=== PATIENT | male | born 1990 | race Caucasian/White ===

== ENCOUNTER 2018-11-23 15:00 | Emergency (ER) | payer SELFPAY ==
[2018-11-23] MEDS ORDERED: Lidocaine 1% 20 ML MDV INJECT ONE (15:06)
[2018-11-23] MEDS ORDERED: Bupivacaine 0.5% 10 ML SDV INJECT ONE (15:06)
--- NOTE | 2018-11-23 15:14 | EDM.PDOC ---
ED HPI GENERAL MEDICAL PROBLEM - General Stated Complaint: LEFT MIDDLE AND RING FINGER CUT Time Seen by Provider: 11/23/18 15:05 Source of Information: Reports: Patient History Limitations: Reports: No Limitations - History of Present Illness INITIAL COMMENTS - FREE TEXT/NARRATIVE: History of present illness: []Patient was doing a hand stand when he fell onto a vaper and cut his hand. He states he can see the tendon but has no complaints of difficulty moving his middle finger or numbness or tingling. Review of systems: As per history of present illness and below otherwise all systems reviewed and negative. Past medical history: As per history of present illness and as reviewed below otherwise noncontributory. Surgical history: As per history of present illness and as reviewed below otherwise noncontributory. Social history: No reported history of drug or alcohol abuse. Family history: As per history of present illness and as reviewed below otherwise noncontributory. Physical exam: General: Well developed, well nourished in NAD HEENT: Atraumatic, normocephalic, pupils reactive, negative for conjunctival pallor or scleral icterus, mucous membranes moist, throat clear, neck supple, nontender, trachea midline. Lungs: Clear to auscultation, breath sounds equal bilaterally, chest nontender. Heart: S1S2, regular, negative for clicks, rubs, or JVD. Abdomen: NABS, Soft, nondistended, nontender. Negative for masses or hepatosplenomegaly. Negative for costovertebral tenderness. Pelvis: Stable nontender. Genitourinary: Deferred. Rectal: Deferred. Extremities: Dorsal proximal left middle finger with a half centimeter straight laceration, dorsal tendon is visible underneath it and looks intact, patient has full range of motion with extension of his fingers and sensation is intact negative for cords or calf pain. Neurovascular unremarkable. Neuro: Awake, alert, oriented. Cranial nerves II through XII unremarkable. Cerebellum unremarkable. Motor and sensory unremarkable throughout. Exam nonfocal. Skin:warm and dry Diagnostics: None Therapeutics: She did not want sutures wound was closed with Dermabond, tetanus status updated , finger splint ED Course: stable Impression: Left hand laceration Prescriptions: None Plan: Follow-up with PMD as needed. Definitive disposition and diagnosis as appropriate pending reevaluation and review of above. - Related Data Allergies Allergy/AdvReac Type Severity Reaction Status Date / Time No Known Allergies Allergy Verified 11/23/18 15:13 Home Meds: Home Meds . [No Known Home Meds] 11/23/18 [History] ED ROS GENERAL - Review of Systems Review Of Systems: ROS reveals no pertinent complaints other than HPI. ED EXAM, UPPER BACK/NECK PAIN - Physical Exam Exam: See Below (See history of present illness) ED LACERATION/WOUND PROCEDURES - Laceration/Wound Repair middle finger\ Laceration/Wound Length In cm: 0.5 Appearance: Subcutaneous Distal NVT: Neuro & Vascular Intact, No Tendon Injury Suture Size: other (Dermabond) Drain Placement: No Sterile Dressing Applied: Nurse Tetanus Status Addressed: Yes Complications: None Course - Vital Signs Last Recorded V/S: Last Vital Signs Temp 97.1 F 11/23/18 15:13 Pulse 68 11/23/18 15:13 Resp 18 11/23/18 15:13 BP 115/56 L 11/23/18 15:13 Pulse Ox 99 11/23/18 15:13 - Orders/Labs/Meds Orders: Active Orders 24 hr Category Date Time Status Vaccines to be Administered [RC] PER UNIT ROUTINE Care 11/23/18 15:48 Active Meds: Medications Discontinued Medications Generic Name Dose Route Start Last Admin Trade Name Docq PRN Reason Stop Dose Admin Bupivacaine HCl 10 ml 11/23/18 15:06 11/23/18 15:21 Sensorcaine-Mpf 0.5% INJECT 11/23/18 15:07 10 ml ONETIME ONE Administration Diphtheria/Tetanus/Acell Pertussis 0.5 ml 11/23/18 15:48 11/23/18 15:57 Adacel IM 11/23/18 15:49 0.5 ml .ONCE ONE Administration Lidocaine HCl Confirm 11/23/18 15:28 Xylocaine-Mpf 1% Administered 11/23/18 15:29 Dose 5 mls @ as directed .ROUTE .STK-MED ONE Lidocaine HCl 20 ml 11/23/18 15:06 Xylocaine 1% INJECT 11/23/18 15:07 ONETIME ONE Lidocaine HCl Confirm 11/23/18 15:15 11/23/18 15:21 Xylocaine 1% Administered 11/23/18 15:16 50 ml Dose Administration 50 ml .ROUTE .STK-MED ONE Octyl Cyanoacrylate 1 applic 11/23/18 15:33 11/23/18 15:56 Dermabond [facility] 11/23/18 15:34 1 applic ONETIME ONE Administration Departure - Departure Time of Disposition: 16:02 Disposition: Home, Self-Care 01 Condition: Good Clinical Impression: Laceration of left middle finger Qualifiers: Encounter type: initial encounter Damage to nail status: without damage Foreign body presence: without foreign body Qualified Code(s): S61.213A - Laceration without foreign body of left middle finger without damage to nail, initial encounter - Discharge Information *PRESCRIPTION DRUG MONITORING PROGRAM REVIEWED*: No *COPY OF PRESCRIPTION DRUG MONITORING REPORT IN PATIENT [id number]: No - My Orders Last 24 Hours: My Active Orders 11/23/18 15:48 Vaccines to be Administered [RC] PER UNIT ROUTINE - Assessment/Plan Last 24 Hours: My Active Orders 11/23/18 15:48 Vaccines to be Administered [RC] PER UNIT ROUTINE
[2018-11-23] MEDS ORDERED: Lidocaine 1% 50 ML MDV ONE (15:15)
[2018-11-23] MEDS ORDERED: Octyl 2-Cyanoacrylate 1 Tube TOP ONE (15:33)
[2018-11-23] MEDS ORDERED: Diphtheria,Pertussis(Acell),Tetanus Vaccine 0.5 ML Syringe IM ONE (15:48)
== END 2018-11-23 16:25 | disposition home or self-care (01) ==
LOC: MW.ED 15:00
DX: S61.213A Laceration without foreign body of left middle finger without damage to nail, initial encounter (principal); W19.XXXA Unspecified fall, initial encounter; Z23 Encounter for immunization
CPT/HCPCS: 12001; 90471; 90715; 99282; A9270; J2001; J3490

== ENCOUNTER 2022-11-10 12:22 | Emergency (ER) | payer SELFPAY ==
[2022-11-10] MEDS ORDERED: Acetaminophen 500 MG Tab PO ONE (13:23)
[2022-11-10 13:32] LABS: CORONAVIRUS COVID-19 NAA POSITIVE (NEGATIVE); INFLUENZA A NAA NEGATIVE (NEGATIVE); INFLUENZA B NAA NEGATIVE (NEGATIVE); RESPIRATORY SYNCYTIAL VIR NAA NEGATIVE (NEGATIVE)
== END 2022-11-10 13:59 | disposition home or self-care (01) ==
LOC: MW.ED 12:22
DX: U07.1 COVID-19 (principal); Z72.0 Tobacco use
CPT/HCPCS: 0241U; 99283; A9270-GY

== ENCOUNTER 2023-03-14 12:06 | Emergency (ER) | payer SELFPAY | END 2023-03-14 13:21 | disposition home or self-care (01) | LOC: MW.ED 12:06 | DX: T63.591A Toxic effect of contact with other venomous fish, accidental (unintentional), initial encounter (principal); Z72.0 Tobacco use | CPT/HCPCS: 99282; 99283 ==